=== PATIENT | female | born 1960 | race Caucasian/White ===

== ENCOUNTER 2016-09-18 16:39 | Emergency (ER) | payer OTHER ==
[~2016-09-18] VITALS: Ht 165.1 cm; Wt 63.6 kg
[2016-09-18 16:53] VITALS: BP 140/74; PULSE 69; RESP 16; O2SAT 99
[2016-09-18 17:22] VITALS: BP 142/71; PULSE 67; RESP 28; O2SAT 100
--- NOTE | 2016-09-18 17:25 | ED.REPORT ---
HPI-Chest Pain 40 and Over Date of Service Sep 18, 2016 ED Provider: MD Anita This is a 56 year old female with a history of cardiomyopathy and fibromyalgia presenting to the emergency department complaining of "crushing" substernal chest pain that began one week ago. Pain has been intermittent, spans the lower chest, with episodes lasting about 15 minutes, and are associated with lightheadedness and nausea. Exacerbated by lying flat. Not brought on by exertion or eating. Symptoms are mildly relieved by Rolaids but usually spontaneously resolve. Chest pain is resolved at this time. Denies vomiting, cough, SOB, constipation, diarrhea, or change LOC. Supervisor Cooler Service: Dr. Vallecillo. Nursing Notes Stated Complaint: CHEST PAIN Chief Complaint: Chest Pain Nursing Notes Reviewed: Yes Allergies: Coded Allergies: oxycodone (Verified Adverse Reaction, Mild, HALLUCINATIONS, 09/18/16) Replaces ROXICET SOLN propoxyphene (Verified Adverse Reaction, Mild, HALLUCINATIONS, 09/18/16) Replaces DARVOCET-N 10 Scheduled Omeprazole (Omeprazole) 20 Mg Tablet.dr 20 MG PO BID General Time Seen by MD: 17:24 Chief Complaint Chest pain Hx Obtained From: Patient Arrived By: Walk-in Sudden in Onset?: Yes Onset Occurred: 1 week ago Symptom Duration: Since onset Severity: Current: No pain currently Severity: Maximum: Mild Pertinent Negative: Pt denies other symptoms Recent Healthcare: No recent doctor visit, No recent hospitalization Similar Sx Previous: No Past Medical History Past Medical History Cardiomyopathy Migraines Thyroid disorder Fibromyalgia Ambulatory Status Independent Review of Systems Constitutional: Denies: Chills, Fever Cardiovascular: Reports: Chest pain GI: Reports: Nausea, Denies: Abdominal pain, Constipation, Diarrhea, Vomiting Musculoskeletal: Denies: Back pain Neurologic: Reports: Lightheaded, Denies: Change LOC Complete sys rev & neg: except as marked. Physical Exam Initial Vital Signs Vital Signs (First) Date Time Temp Pulse Resp B/P Pulse Ox O2 Delivery O2 Flow Rate FiO2 09/18/16 16:53 36.4 69 16 140/74 99 Room Air Initial VS: Reviewed Head / Eyes: Atraumatic, Normocephalic, PERRL ENT: Mucous membranes moist, Conjunctiva normal, No scleral icterus Neck: Supple, Non-tender, Full range of motion Extremities: Vascular intact, Neuro intact, No swelling, No tenderness Skin: Warm, Dry, No cyanosis Neurologic: Alert, Oriented, Nonfocal Psychiatric: Mood/affect normal, Behavior normal, Normal thought content General/Constitutional: Awake, Alert, No acute distress, Well appearing Respiratory / Chest: Breath sounds NL, Breath sounds = bilat, No respiratory distress, No rales, No rhonchi, No wheezing, No stridor Mild tenderness to anterior L chest wall Cardiovascular: Heart rate NL, Regular rhythm, Heart sounds NL, No murmurs, Peripheral circulation NL, Pulses = bilaterally, No gross BP differential Abdomen: Soft, McBurney's non-tender, No guarding, No rebound, BS normoactive, No distention, No hernia, No palpable mass Tenderness/Guarding/Rebound: Positive: Tender epigastric Interpretation & Diagnostics CHEST X-RAY IMPRESSION: No acute pulmonary process. Dictated by: Autumn Navarrete M.D. on 09/18/2016 at 17:36 Approved by: Autumn Navarrete M.D. on 09/18/2016 at 17:36 Lab Results Interpretation Result Diagram: 09/18/16 1730 09/18/16 1730 Test 09/18/16 17:30 White Blood Count 7.8th/mm3 (3.8-10.1) Red Blood Count 4.32mil/mm3 (3.90-5.20) Hemoglobin 12.4g/dL (12.0-15.6) Hematocrit 38.8% (35.0-46.0) Mean Corpuscular Volume 89.8fL (81-100) Mean Corpuscular Hemoglobin 28.7pg (27.0-35.0) Mean Corpuscular Hemoglobin Concent 32.0% (32.0-37.0) Red Cell Distribution Width 13.9% (12.3-15.4) Platelet Count 226bil/L (150-400) Neutrophils (%) (Auto) 48.5% (40-74) Lymphocytes (%) (Auto) 39.8% (14-46) Monocytes (%) (Auto) 8.6% (4-12) Eosinophils (%) (Auto) 2.4% (0-5) Basophils (%) (Auto) 0.6% (0-3) Sodium Level 137mEq/L (134-144) Potassium Level 3.8mEq/L (3.5-5.2) Chloride Level 97mEq/L (97-108) Carbon Dioxide Level 27mmol/L (18-29) Blood Urea Nitrogen 18mg/dL (6-24) Creatinine 1.53mg/dL (0.57-1.00) Estimat Glomerular Filtration Rate 50mL/min (>59) Glucose Level 88mg/dL (60-99) Calcium Level 9.5mg/dL (8.5-10.1) Magnesium Level 2.2mg/dL (1.6-2.6) Total Bilirubin 0.2mg/dL (0.0-1.2) Aspartate Amino Transf (AST/SGOT) 18U/L (0-50) Alanine Aminotransferase (ALT/SGPT) 14U/L (0-32) Alkaline Phosphatase 87U/L (25-150) Troponin T < 0.010ug/L (0.0-0.011) Total Protein 7.1g/dL (6.4-8.4) Albumin 4.6g/dL (3.4-5.0) Hold Alanis Top Tube Received (Received) ECG Interpretation ECG Interpretation: NSR at a rate of 63 Time: 17:57 Interpreted by: ED physician Normal ECG Interpretation: Normal rate, Normal sinus rhythm, No acute ischemic changes, Normal QRS, Normal axis, Normal intervals, No change from prior ECGs, Adequate tracing X-Ray Chest Interpretation Chest Xray Interpretation: IMPRESSION: No acute pulmonary process. Dictated by: Autumn Navarrete M.D. on 09/18/2016 at 17:36 Approved by: Autumn Navarrete M.D. on 09/18/2016 at 17:36 Re-Eval/Medical Decision Med Decision/Clinical Course This is a 56 year old female with a history of cardiomyopathy and fibromyalgia presenting to the emergency department complaining of "crushing" substernal chest pain that began one week ago. Pain has been intermittent, spans the lower chest, with episodes lasting about 15 minutes, and are associated with lightheadedness and nausea. Exacerbated by lying flat. Not brought on by exertion or eating. Symptoms are mildly relieved by Rolaids but usually spontaneously resolve. Chest pain is resolved at this time. Denies vomiting, cough, SOB, constipation, diarrhea, or change LOC. Supervisor Cooler Service: Dr. Vallecillo. Here in the emergency, the patient is afebrile stable vital signs and examination as above. EKG was obtained and interpreted by myself as documented above. CXR: Obtained, reviewed and interpreted by myself shows no evidence of acute infiltrates, effusions or pneumothorax. Cardiac and mediastinal silhouette normal. No bony or soft tissue abnormalities. CBC unremarkable except creatinine 1.53 which is slightly elevated from prior baseline of 1.13 troponin negative Overall presentation suggestive of GI etiology. I suspect GERD/gastritis. While the patient does have a cardiac history I find it highly unlikely that the symptoms the patient is experiencing are related to her underlying cardiomyopathy. Patient has been prescribed omeprazole and we will trial this over the next few days. She will return right away if he develops shortness of breath or exertionally related symptoms. Initial cardiac workup including troponin and EKG are reassuring. Patient was additionally notified of her acute kidney injury and importance of close follow-up with her primary care physician for repeat kidney function testing in the next couple of days. I feel that she is appropriate for outpatient management and she has good outpatient support. Follow-up and return precautions were reviewed in detail with the patient as well as her and they verbalized understanding and agreement with the plan. She was discharged in good condition. Counseled Regarding: Diagnosis, Lab results, Need for follow-up Discharge & Departure Primary Impression: Acid reflux Esophagitis presence: esophagitis presence not specified Qualified Code: K21.9 - Gastro-esophageal reflux disease without esophagitis Additional Impressions: Acute kidney injury History of cardiomyopathy Disposition: Home Discharge Condition All VS Reviewed: Yes Condition: Stable Patient Instructions: Gastroesophageal Reflux Disease (ED) Additional Instructions: Thank you for seeking care at emergency room. It is difficult for us to make definitive diagnoses in the ED but we believe that you are experiencing acid reflux. Our primary goal today in the ED was to evaluate you for any life-threatening conditions. Your evaluation was reassuring. You will be discharged with a prescription for omeprazole, take as prescribed. You should follow-up with your occupational health and safety officer and primary care provider next week. You should return to the ED immediately if you develop fevers, vomiting, cough, shortness of breath, chest pain, lightheadedness, weakness or any other concerning signs or symptoms. Thank you for letting us partake in your care today. Referrals: Clare Yung (PCP) Scribe Attestation Portions of this note were transcribed by Forest Muller. I, Dr. Howard personally performed the history, physical exam and medical decision-making; I reviewed and confirmed the accuracy of the information in the transcribed note. Signed by: patricia Mcdonald. 09/18/2016, 23:30. Andrew Howard MD Sep 18, 2016 17:24 FOREST MULLER Sep 18, 2016 17:33
--- NOTE | 2016-09-18 17:38 | DRSVH ---
PROCEDURE: X-RAY CHEST, TWO VIEWS ([id number]) INDICATIONS: chest pain TECHNIQUE: 2 views of the chest were acquired. COMPARISON: None. FINDINGS: Surgical changes and devices: Multiple right upper quadrant clips are present. Lungs and pleura: No pleural effusions or pneumothorax. Lungs are clear. Mediastinum: Mediastinal contours are normal. Heart size is normal. Bones and chest wall: No suspicious bony abnormalities. Soft tissues appear unremarkable. IMPRESSION: No acute pulmonary process. Dictated by: Autumn Navarrete M.D. on 09/18/2016 at 17:36 Approved by: Autumn Navarrete M.D. on 09/18/2016 at 17:36
[2016-09-18 17:44] LABS: BASOPHILS % (AUTO) 0.6 % (0-3); EOSINOPHILS % (AUTO) 2.4 % (0-5); MONOCYTES % (AUTO) 8.6 % (4-12); Mean Corpuscular Hemoglobin 28.7 pg (27.0-35.0); Mean Corpuscular Volume 89.8 fL (81-100); NEUTROPHILS % (AUTO) 48.5 % (40-74); Platelet Count 226 bil/L (150-400)
[2016-09-18] MEDS ORDERED: OMEP20TA86 PO (18:02)
[2016-09-18 18:14] LABS: TROPONIN T < 0.010 ug/L (0.0-0.011)
[2016-09-18 18:21] LABS: Magnesium 2.2 mg/dL (1.6-2.6)
[2016-09-18 18:30] VITALS: BP 133/54; PULSE 66; RESP 16; O2SAT 100
[2016-09-18 19:00] VITALS: BP 133/54; PULSE 66; RESP 16; O2SAT 100
== END 2016-09-18 19:01 | disposition home or self-care (01) ==
LOC: SED 16:39
DX: K21.9 Gastro-esophageal reflux disease without esophagitis (principal); N17.9 Acute kidney failure, unspecified; Z86.79 Personal history of other diseases of the circulatory system; Z86.39 Personal history of other endocrine, nutritional and metabolic disease; Z87.39 Personal history of other diseases of the musculoskeletal system and connective tissue; Z88.5 Allergy status to narcotic agent; Z88.8 Allergy status to other drugs, medicaments and biological substances

== ENCOUNTER 2016-11-23 01:37 | Emergency (ER) | payer OTHER ==
[~2016-11-23] VITALS: Ht 165.1 cm; Wt 63.6 kg
[~2016-11-23 01:37] MED LIST: OMEP20TA86 PO
[2016-11-23 01:47] VITALS: BP 125/80; PULSE 83; RESP 16; O2SAT 97
[2016-11-23 02:23] VITALS: BP 133/85; PULSE 72; RESP 16; O2SAT 100
--- NOTE | 2016-11-23 02:26 | ED.REPORT ---
HPI-Syncope Date of Service Nov 23, 2016 ED Provider: Yuval Monae MD Patient is a 56 year old female with a history of migraine headaches, fibromyalgia, cardiomyopathy, and prior subarachnoid hemorrhage s/p left temporal craniotomy who presents to the ED after having 2x syncopal episodes tonight. The patient was at a dinner alliance party with friends tonight and suddenly fainted. The patient did not feel light headed or dizzy prior to the episode. The patient felt normal after she awoke from the episode and was found to have a normal blood pressure. Patient admits to drinking several glasses of wine tonight, but states that she was not intoxicated. She usually drinks 1-2 glasses of wine with dinner daily. The patient then had a second syncopal episode after arrival to the ED. The patient had just gone to the bathroom when she went limp, but her was supporting her and prevented a fall. He lowered her to the ground and she awoke several minutes later. She was not pale , had no nausea, headache, chest pain, shortness of breath, palpitations, or vomiting. Again, the patient denied feeling lightheaded prior to the syncopal episode. The patent also had a syncopal episode 5 days ago, after returning home from a [place] trip.They were in [place] to picker operator their daughter's car, who is currently deployed in [employer] Patient reports having cramping in her legs throughout her trip, as the car does not have a lot of leg room. Patient reports drinking a large amount of water for the past week and she has been eating normally. She denies any injuries from her syncopal episodes. Nursing Notes Stated Complaint: FAINTED Chief Complaint: General Complaint Nursing Notes Reviewed: Yes Allergies: Coded Allergies: oxycodone (Verified Adverse Reaction, Mild, HALLUCINATIONS, 09/18/16) Replaces ROXICET SOLN propoxyphene (Verified Adverse Reaction, Mild, HALLUCINATIONS, 09/18/16) Replaces DARVOCET-N 10 Scheduled Omeprazole (Omeprazole) 20 Mg Tablet. 20 MG PO BID General Time Seen by Provider: 02:28 Chief Complaint Collapsed suddenly Hx Obtained From: Patient, Spouse Arrived By: Walk-in Onset Occurred: Just prior to arrival Symptom Duration: 1 - 15 minutes Severity: Current: No pain currently Severity: Maximum: No pain Recent Healthcare: No recent doctor visit, No recent hospitalization Similar Sx Previous: Yes Past Medical History Past Medical History Notes: Dr. Vallecillo: cardiology Past Medical History Cardiomyopathy Migraines Thyroid disorder Fibromyalgia Subarachnoid hemorrhage 16 yrs ago solitary kidney Past Surgical History left temporal craniotomy kidney surgery Family History Mother: coronary artery disease Smoking History Unknown if Ever Smoker Social History Other Social History: Good social support, Local resident Ambulatory Status Independent Review of Systems Respiratory: Denies: Shortness of breath Cardiovascular: Denies: Chest pain, Palpitations GI: Denies: Nausea, Vomiting Musculoskeletal: Reports: Extremity pain Neurologic: Reports: Change LOC, Syncope, Denies: Dizziness, Headache, Lightheaded Complete sys rev & neg: except as marked. Physical Exam Initial Vital Signs Vital Signs (First) Date Time Temp Pulse Resp B/P Pulse Ox O2 Delivery O2 Flow Rate FiO2 11/23/16 01:47 36.6 83 16 125/80 97 Room Air Initial VS: Reviewed, Vital signs normal Abdomen / GI: Soft, Non-tender, No distention Upper Extremities: Vascular intact, Neuro intact, No swelling, No tenderness Skin: Warm, Dry, No cyanosis Psychiatric: Mood/affect normal, Behavior normal, Normal thought content General/Constitutional: Awake, Alert, No acute distress Respiratory / Chest: Breath sounds NL, Breath sounds = bilat, No respiratory distress, No rales, No rhonchi, No wheezing Cardiovascular: Heart rate NL, Regular rhythm, Heart sounds NL, No murmurs Lower Extremity / Pelvis / MS: No swelling, No edema Neurologic: Oriented X3, Speech NL, No motor deficits, No sensory deficits, CN II - XII intact Head / Eyes: Atraumatic, Normocephalic, PERRL ENT: Airway patent Mouth: Positive: Mucous membranes dry Neck: Supple, No JVD Interpretation & Diagnostics Lab Results Interpretation Result Diagram: 11/23/16 0259 11/23/16 0259 Test 11/23/16 02:59 11/23/16 04:03 White Blood Count 6.9th/mm3 (3.8-10.1) Red Blood Count 4.65mil/mm3 (3.90-5.20) Hemoglobin 13.6g/dL (12.0-15.6) Hematocrit 40.6% (35.0-46.0) Mean Corpuscular Volume 87.3fL (81-100) Mean Corpuscular Hemoglobin 29.2pg (27.0-35.0) Mean Corpuscular Hemoglobin Concent 33.5% (32.0-37.0) Red Cell Distribution Width 14.3% (12.3-15.4) Platelet Count 237bil/L (150-400) Neutrophils (%) (Auto) 42.3% (40-74) Lymphocytes (%) (Auto) 47.6% (14-46) Monocytes (%) (Auto) 7.0% (4-12) Eosinophils (%) (Auto) 2.2% (0-5) Basophils (%) (Auto) 0.6% (0-3) D-Dimer < 0.50mg/L FEU (<0.50) Sodium Level 141mEq/L (134-144) Potassium Level 4.2mEq/L (3.5-5.2) Chloride Level 101mEq/L (97-108) Carbon Dioxide Level 21mmol/L (18-29) Blood Urea Nitrogen 14mg/dL (6-24) Creatinine 1.04mg/dL (0.57-1.00) Estimat Glomerular Filtration Rate 78mL/min (>59) Glucose Level 90mg/dL (60-99) Calcium Level 9.4mg/dL (8.5-10.1) Magnesium Level 2.2mg/dL (1.6-2.6) Total Bilirubin 0.2mg/dL (0.0-1.2) Aspartate Amino Transf (AST/SGOT) 25U/L (0-50) Alanine Aminotransferase (ALT/SGPT) 18U/L (0-32) Alkaline Phosphatase 90U/L (25-150) Troponin T 0.010ug/L (0.0-0.011) Total Protein 7.4g/dL (6.4-8.4) Albumin 4.5g/dL (3.4-5.0) Hold Alanis Top Tube Received (Received) Urine Color Straw (YELLOW) Urine Appearance Clear (CLEAR,HAZY) Urine pH 6.0 (5.0-8.0) Urine Specific [place] 1.004 (1.003-1.035) Urine Protein Negativemg/dL (NEG,TRACE) Urine Glucose (UA) Negativemg/dL (NEGATIVE) Urine Ketones Tracemg/dL (NEGATIVE) Urine Occult Blood Trace (NEGATIVE) Urine Nitrite Negative (NEGATIVE) Urine Bilirubin Negative (NEGATIVE) Urine Urobilinogen Normalmg/dL (NORMAL) Urine Leukocyte Esterase Negative (NEGATIVE) Urine RBC 0-2/hpf (0-2) Urine WBC 0-5/hpf (0-5) Urine Epithelial Cells Few/hpf (NONE-MOD) Urine Crystals None seen (NONE SEEN) Urine Bacteria Few/hpf (NONE-FEW) Urine Hyaline Casts None/lpf (NONE) Urine Granular Casts None seen (NONE SEEN) Urine Waxy Casts None seen (NONE SEEN) Urine Red Blood Cell Casts None seen (NONE SEEN) Urine White Blood Cell Casts None seen (NONE SEEN) Urine Mucus None seen (None Seen) Urine Trichomonas None seen (NONE SEEN) Urine Yeast None (NONE SEEN) Urinalysis Comment None Urine Culture Reflexed Not indicated Lab values outside NL range: no clinical significance. ECG Interpretation ECG Interpretation: Sinus rhythm, Rate 85 Time: 02:39 Interpreted by: ED physician Normal ECG Interpretation: No acute ischemic changes, No change from prior ECGs X-Ray Chest Interpretation Chest Xray Interpretation: Impression: No acute cardiopulmonary process. View: AP & lat Interpretation / Wet Read by: Wet read ED physician CT Head Interpretation CONCLUSION: Right basal ganglia dilated perivascular space versus lacunar infarct, chronic. Mild, patchy white matter disease particularily in the right hemisphere. No acute intracranial abnormality. Radiologist: Sandy Sherman MD 11/23/2016 - 3:26:09 AM PDT Study: Head CT no contrast Interpretation / Wet Read by: Interpret - Radiologist Re-Eval/Medical Decision Med Decision/Clinical Course 56-year-old female with a history of recurrent syncope. She had no prodrome for her syncope tonight. She did not hurt herself when she fell. She has been drinking some alcohol but not in excess. Labs are all normal. Orthostatic vital signs are insignificant. There is no evidence of valvular disease or congestive heart failure. D-dimer and troponin are negative. No cardiac arrhythmias seen on EKG or monitoring. She will be discharged home with instructions to follow up with her primary providers. Source of Hx: Old records Re-Evaluation/Progress : Time of Eval: 05:05 Patient Status: Condition improved Re-Evaluation/Progress Note: Rechecked the patient. Her EKG, chest x-ray, labs, and CT scan was normal. She has not noted any palpitations while in the ED. Patient understands and agrees with the plan to be discharged home. Discharge instructions and follow-up discussed. She should follow-up with her cotton chopper to have a month long cardiac moniter. Will performed orthostatics. All questions were addressed. Return to the ED warnings given. Counseled Regarding: Diagnosis, Lab results, Need for follow-up, When/why to return to ED Discharge & Departure Impression: Primary Impression: Syncope Syncope type: unspecified Qualified Code: R55 - Syncope and collapse Disposition: Home Discharge Condition All VS Reviewed: Yes Condition: Stable Patient Instructions: Syncope (ED) Additional Instructions: All of your labs are normal. Your EKG and bus monitor strips are normal. There is no indication at this time as to why you passed out. Follow up with your regular doctor for further evaluation, possibly to include a 30 day cardiac event monitor. Return if you have recurrent syncope. Referrals: Clare Yung (PCP) Scribe Attestation Portions of this note were transcribed by Janell Ortez. I, Dr. Monae personally performed the history, physical exam and medical decision-making; I reviewed and confirmed the accuracy of the information in the transcribed note. Signed by: Jamie Aragon, 11/23/2016 0525 copies to: Clare Yung Howard L MD Nov 23, 2016 02:25 Janell Ortez Nov 23, 2016 02:34
[2016-11-23] MEDS ORDERED: 0.9% Sodium Chloride 1,000 ML IV ONE (02:42)
[2016-11-23 03:03] LABS: BASOPHILS % (AUTO) 0.6 % (0-3); EOSINOPHILS % (AUTO) 2.2 % (0-5); Mean Corpuscular Hemoglobin 29.2 pg (27.0-35.0); Mean Corpuscular Volume 87.3 fL (81-100); NEUTROPHILS % (AUTO) 42.3 % (40-74); Platelet Count 237 bil/L (150-400)
[2016-11-23 03:46] LABS: Magnesium 2.2 mg/dL (1.6-2.6)
[2016-11-23 03:47] LABS: TROPONIN T 0.01 ug/L (0.0-0.011)
[2016-11-23 04:14] VITALS: BP 119/56; PULSE 76; RESP 16; O2SAT 98
[2016-11-23 04:25] LABS: APPEARANCE,URINE CLEAR (CLEAR,HAZY); COLOR,URINE STRAW (YELLOW); OCCULT BLOOD,URINE TRACE (NEGATIVE); UROBILINOGEN,URINE NORMAL (NORMAL)
[2016-11-23 05:21] VITALS: BP_SYST 117; BP_SYST 129; BP_DIAS 63; BP_DIAS 72; PULSE 82; PULSE 84; RESP 16; O2SAT 97
--- NOTE | 2016-11-23 07:31 | DRSVH ---
PROCEDURE: CT BRAIN WITHOUT CONTRAST ([id number]) INDICATIONS: syncope TECHNIQUE: Noncontrast 4.5 mm thick angled axial sections acquired from the foramen magnum to the vertex, with c oronal reformats. COMPARISON: [facility], CT, CT ANGIO BRAIN, 09/13/2015, 16:18. FINDINGS: Image quality: Excellent. CSF spaces: Basal cisterns are patent. No extra-axial fluid collections. Ventricles are normal in size and shape. Brain: No midline shift. No intracranial masses or hemorrhage. Diaz-white matter interface is norm al. Skull and face: The visualized facial bones are intact, without suspicious lesions. Postsurgical ugo nges to the left frontal temporal calvarium are noted. Sinuses: Visualized sinuses and mastoids are clear. IMPRESSION: 1. No acute intracranial process. Dictated by: Autumn Navarrete M.D. on 11/23/2016 at 7:28 Approved by: Autumn Navarrete M.D. on 11/23/2016 at 7:29
--- NOTE | 2016-11-23 07:49 | DRSVH ---
PROCEDURE: X-RAY CHEST, TWO VIEWS ([id number]) INDICATIONS: syncope TECHNIQUE: 2 views of the chest were acquired. COMPARISON: [facility], CR, XR CHEST 2VW, 09/18/2016, 17:16. FINDINGS: Surgical changes and devices: Cholecystectomy clips as well as right upper quadrant clips are noted. Lungs and pleura: No pleural effusions or pneumothorax. Lungs are clear. Mediastinum: Mediastinal contours are normal. Heart size is normal. Bones and chest wall: No suspicious bony abnormalities. Soft tissues appear unremarkable. IMPRESSION: No acute pulmonary process. Dictated by: Autumn Navarrete M.D. on 11/23/2016 at 7:47 Approved by: Autumn Navarrete M.D. on 11/23/2016 at 7:47
== END 2016-11-23 06:01 | disposition home or self-care (01) ==
LOC: SED 01:37
DX: R55 Syncope and collapse (principal); Z90.5 Acquired absence of kidney; Z87.39 Personal history of other diseases of the musculoskeletal system and connective tissue; Z86.39 Personal history of other endocrine, nutritional and metabolic disease; Z86.79 Personal history of other diseases of the circulatory system; Z98.890 Other specified postprocedural states; Z88.5 Allergy status to narcotic agent
CPT/HCPCS: 36415; 70450; 71020; 80053; 81000; 83735; 84484; 85025; 85378; 93005; 96360; 99285; J7030

== ENCOUNTER 2016-11-24 23:37 | Emergency (ER) | payer OTHER ==
[~2016-11-24] VITALS: Ht 165.1 cm; Wt 63.6 kg
[2016-11-24 23:41] VITALS: BP 133/75; RESP 16; O2SAT 100
--- NOTE | 2016-11-25 01:37 | ED.REPORT ---
HPI-General Illness Date of Service November 25, 2016 ED Provider: Oliverio Cisneros MD A 56 year old female with a history of fibromyalgia, cardiomyopathy, and subarachnoid hemorrhage presents to the ED due to epistaxis. The pt began experiencing this episode at approximately 20:30 tonight and it continued until ten minutes ago. The pt attempted using tampons and clamps to stop the bleeding without relief. She removed the tampons thirty minutes ago. The pt has experienced nosebleeds before but they have not been nearly this severe. She denies use of blood thinners or recent illness. Nursing Notes Stated Complaint: NOSE BLEED Chief Complaint: ENT & Mouth Nursing Notes Reviewed: Yes Allergies: Coded Allergies: oxycodone (Verified Adverse Reaction, Mild, HALLUCINATIONS, 09/18/16) Replaces ROXICET SOLN propoxyphene (Verified Adverse Reaction, Mild, HALLUCINATIONS, 09/18/16) Replaces DARVOCET-N 10 Scheduled Omeprazole (Omeprazole) 20 Mg Tablet.dr 20 MG PO BID General Time Seen by MD: 01:36 Chief Complaint Other (Epistaxis) Hx Obtained From: Patient Arrived By: Walk-in Sudden in Onset?: No Onset Occurred: 5 - 8 hours ago Symptom Duration: Since onset Recent Healthcare: No recent hospitalization, Recent doctor visit Similar Sx Previous: No Past Medical History Past Medical History Notes: Dr. Vallecillo: cardiology Past Medical History Cardiomyopathy Migraines Thyroid disorder Fibromyalgia Subarachnoid hemorrhage 16 yrs ago solitary kidney Past Surgical History left temporal craniotomy kidney surgery Family History Mother: coronary artery disease Smoking History Unknown if Ever Smoker Social History Other Social History: Good social support, , Local resident Ambulatory Status Independent Review of Systems Full Review of Systems Constitutional: Denies: Fever Ears / Nose / Throat: Reports: Nose bleeding Respiratory: Denies: Non-productive cough, Shortness of breath Cardiovascular: Denies: Chest pain GI: Denies: Abdominal pain Skin: Denies Rash Complete sys rev & neg: except as marked. Physical Exam Vital Signs Vital Signs Date Time Temp Pulse Resp B/P Pulse Ox O2 Delivery O2 Flow Rate FiO2 11/24/16 23:41 36.4 79 16 133/75 100 Room Air Initial VS: Reviewed General/Constitutional: Awake, Alert Head / Eyes: Atraumatic, Normocephalic, PERRL, EOMI ENT: Atraumatic, Airway patent, Mucous membranes moist small amount of clot adherent to left septum no signs of nasal speculum no clear source of nasal bleeding Neck: Atraumatic, Supple, Full range of motion Respiratory / Chest: Atraumatic, Breath sounds NL, Breath sounds = bilat, No respiratory distress Cardiovascular: Heart rate NL, Regular rhythm, Heart sounds NL, No gallop, No murmurs, No rubs Abdomen: Atraumatic, Soft, Non-tender Back: Atraumatic, Full range of motion Upper Extremities Upper Extremity / MS: Atraumatic, Full range of motion Lower Extremity / Pelvis / MS: Atraumatic, Full range of motion Skin: Atraumatic, Color NL, No rash, Warm, Dry Neurologic: Oriented X3, Speech NL, No motor deficits, No sensory deficits Psychiatric: Affect NL, Mood NL Re-Eval/Medical Decision Source of Hx: Old records Time of Eval: 01:36 Patient Status: Condition improved Re-Evaluation/Progress Note: The pt is informed of her diagnosis and the plan for discharge during the initial interview. The pt understands and agrees with the plan. All questions are addressed at this time. Counseled Regarding: Diagnosis, Need for follow-up, When/why to return to ED Discharge & Departure Primary Impression: Anterior epistaxis Disposition: Home Discharge Condition All VS Reviewed: Yes Condition: Stable Patient Instructions: Epistaxis (ED) Additional Instructions: This appears to be a nosebleed from the front of the nostril. Bleeding has stopped at present, hopefully it will not re-start. Apply antibiotic ointment to the inside/middle of your nose twice daily for 2 days. Do not bend over or blow your nose. If bleeding recurs, pinch nose firmly for 10 min, return to ED if this does not stop bleeding. Follow up with primary care later this week as planned. Call to see an ENT doctor if you have recurrent episodes of bleeding. Referrals: Clare Yung (PCP) Jose Antonio Corey MD Attestation Portions of this note were transcribed by Liv Vásquez. I, Dr. Cisneros personally performed the history, physical exam and medical decision-making; I reviewed and confirmed the accuracy of the information in the transcribed note. Signed by: Jamie Lai, 11/25/16 and 0206. copies to: Jose Antonio Corey MD; Clare Yung Donald L MD November 25, 2016 01:37 LIV VÁSQUEZ November 25, 2016 01:47
== END 2016-11-25 02:01 | disposition home or self-care (01) ==
LOC: SED 23:37
DX: R04.0 Epistaxis (principal); Z88.5 Allergy status to narcotic agent; Z88.8 Allergy status to other drugs, medicaments and biological substances

== ENCOUNTER 2017-02-05 07:09 | Day surgery (SDC) | payer OTHER ==
[~2017-02-05] VITALS: Ht 165.1 cm; Wt 66.7 kg
[~2017-02-05 07:09] MED LIST changes: +DIAZ2TAB PO; +DIGO125T73 PO; +ESTR1TAB24 PO; +HYDR-3090 PO; +HYDR2TAB27 PO; +Lactated Ringer's 1,000 ML IV ONE; +METH500T PO; +METO10TA3 PO; +NORT10CA PO; +PARO20TA57 PO; +PREG75CA PO; +TRAZ-118 PO
[2017-02-05] MEDS ORDERED: Propofol 10,000 mCg/mL 20 mL Inj ONE (07:10)
[2017-02-05] MEDS ORDERED: fentaNYL-PF 50 mCg/mL 2 mL Inj ONE (07:10)
[2017-02-05 07:18] VITALS: BP 119/66; PULSE 74; RESP 14; O2SAT 98
--- NOTE | 2017-02-05 08:33 | PCM.ENDCOL ---
Colonoscopy Date of Service: Feb 05, 2017 Physician Bill Jade MD Pre Procedure Diagnosis: Constipation Post Procedure Dx & Findings: Polyp hemorrhoids inadequate prep Procedure Colonoscopy PROCEDURE IN DETAIL: Prep inadequate - prep was relatively poor because patient had significant amount of fibrous material. We did an however get a good look in the cecum. Withdrawal time greater than 10 minutes After unremarkable rectal examination the Olympus video colonoscope was inserted patient's anal canal and was advanced to cecum. Landmarks were identified including the ileocecal valve and appendiceal orifice. Scope was withdrawn systematically. Visualized colonic mucosa showed healthy shiny mucosa with normal healthy-appearing vasculature. The cecum there was a 1 mm polyp was removed completely using cold forceps. In the sigmoid colon there were small diverticuli. Healing numbers. In the rectum retroflexion was done which showed hemorrhoids. Anal canal was inspected carefully on the way out and hemorrhoids noted. Impression polyp 1 status post complete removal Few small diverticuli Hemorrhoids Recommendation Repeat colonoscopy in 6 months with 2 weeks of low residual diet and with anesthesia Presedation Assessment Risks and Benefits Informed consent was obtained from the patient after all risks and benefits including but not limited to drug reaction, infection, pain, bleeding, perforation, as well as alternatives were discussed. Patient monitoring Continuous pulse oximetry, cardiac monitoring, blood pressure monitoring, IV access, and oxygen at 2L per nasal cannula. Complications There were no periprocedural complications identified. Post Procedure Plan Post Procedure Recommendations 1. Restrict activities today. 2. Resume normal activities in the morning. 3. Resume medications. 4. Patient informed of normal post procedure side effects as bloating, drowsiness, blood streaking in the stool. 5. average risk CRCS. If colon polyps come back as: -Hyperplastic- can repeat colonoscopy in 10 years -Tubular adenoma- repeat colonoscopy in 5 years -Tubulovillous/villous adenoma- repeat colonoscopy in 3 years -If any dysplasia- return to clinic as soon as possible 6. Please don't hesitate to call me with any questions. Bill Jade MD Feb 05, 2017 08:33
[2017-02-05 08:34] VITALS: BP 101/56; PULSE 74; RESP 16; O2SAT 99
[2017-02-05 08:44] VITALS: BP 108/69; PULSE 69; RESP 16; O2SAT 97
--- NOTE | 2017-02-05 17:42 | PCM.HPANE ---
Patient Data Date of Service: Feb 05, 2017 (0700) Surgeon Admitting Provider: Attending Provider:Bill Jade MD Primary Care Physician:Clare Yung Other Provider:Varun Mercedes Anesthesia Reason for Visit Constipation Ht/WT & BMI Height (Feet): 5 Height (Inches): 5 Weight (Kilograms): 66.68 Body Mass Index 24.00 Allergies Coded Allergies: oxycodone (Verified Adverse Reaction, Mild, HALLUCINATIONS, 09/18/16) Replaces ROXICET SOLN propoxyphene (Verified Adverse Reaction, Mild, HALLUCINATIONS, 09/18/16) Replaces DARVOCET-N 10 Past Anesthesia History Anesthesia History: Denies:: Abnormal Airway, Anesthesia Reactions, Difficult Intubation, Fam Anesthesia Reaction, Fam Malignant Hypertherm, Malignant Hyperthermia Diabetes History Hx Diabetes?: No MRSA MRSA: No Medications Home Meds Incl Beta Asndra: No Active Scripts Omeprazole 20 Mg Tablet.dr20 Mg PO BID 30 Days Prov:Andrew Howard MD 09/18/16 Reported Medications Hydrocodone-Acetaminophen 5-300 mg 1 Each Tablet1 Tablet PO Q4H PRN For Pain Ref 0 02/04/17 Diazepam (Valium)2 Mg Tablet1 Mg PO BID 30 Days Ref 0 02/04/17 Trazodone 100 Mg [id number] Mg PO TIDWM Ref 0 02/04/17 Methocarbamol (Robaxin)500 Mg Tablet1,000 Mg PO QID 02/04/17 Paroxetine (Paxil)20 Mg Fopabp10 Mg PO HS Ref 0 02/04/17 Nortriptyline 10 Mg Aqywssr97 Mg PO HS 02/04/17 Metoclopramide 10 Mg Lvvapj43 Mg PO HS Ref 0 02/04/17 Pregabalin (Lyrica)75 Mg Widjghe57 Mg PO BID 30 Days Ref 0 02/04/17 Digoxin 125 Mcg Bctwea148 Mcg PO DAILY #30 TABLET Ref 0 02/04/17 Discontinued Reported Medications Estradiol 1 Mg Tablet0.5 Mg PO DAILY Ref 0 02/04/17 Hydromorphone (Dilaudid)2 Mg Tablet2 Mg PO Q4H PRN Pain 02/04/17 History History of ENT Problems?: No HEENT History: Denies:: Abnormal Airway Cataracts Difficult Intubation Dysphagia Glaucoma Hearing Problem Sinus Problem TMJ Denture Type: None Teeth Condition: Within Normal Limits Hx of Heart Problems?: No Cardiovascular History: Denies:: AICD Atrial Fibrillation Chest Pain Congestive Heart Failure Hypertension (HYPOTENSION) Pacemaker Valvular Heart Disease Other Cardiac History: HX OF CARDIOMYOPATHY W/ DIZZINESS Hx of Respiratory Problem?: No Respiratory History: Denies:: Asthma COPD Chest Surgery Cough Dyspnea Emphysema Hemoptysis Oxygen Administration Pneumonia Pulmonary Embolism Tuberculosis Use of C-PAP Machine Use of Inhalers / NEBS Hx Neurologic Problems?: No Neurological History: Positive for:: CVA (SUBARACHNOID HEMORRHAGE) Hx of GI Problems?: Yes Other GI Pertinent History: R KIDNEY REMOVED R/T RENAL CANCER Hx of Problems?: No Female Hx: Denies:: Currently (HYSTO) Hx Musculoskeletal Problems?: No Musculoskeletal History: Positive for:: Fibromyalgia Denies:: Joint Replacement Psycho Social History: Positive for:: Anxiety Denies:: Hx Depression Hx Surgeries?: Yes (NECK CYST, CSEC, HYSTO W/ OOPH, R KIDNEY REM, BRAIN, BILAT SHOUL, LAP CARMEN) Hx Any Other Health Problems?: Yes Hx Diabetes: No Hx Alcohol Use: YesHx Substance Use: No Smoking Status: Unknown if Ever Smoker Have You Smoked inLast 12 mo: No Stop/Bang Treated for Sleep Apnea?: No Do You Have a CPAP Machine?: No S-Snoring: Do You Snore Loudly: No T-Tired: feel tired, fatigued: No O-Obsered: Observed not breath: No P-Blood Pressure: treated: No B- Body Mass Index > 35 kg/m2: No A- Age over 50: Yes N- Neck Large Circumference: No G- Gender Male: No KENDAL Total Score: 1 Risk Assessment Category Category 1A: Patient has history of documented sleep apnea, and HAS NOT received any narcotic, sedative or anesthesia administration during this stay. Category 1B: Patient has history of documented sleep apnea, and HAS received any narcotic , sedative or anesthesia administration during this stay Category 2: Patient has SUSPECTED Obstructive Sleep Apnea, and HAS received any narcotic , sedative or anesthesia administration during this stay. Category 3: Patient has SUSPECTED Obstructive Sleep Apnea and HAS NOT received narcotic, sedative or anesthesia administration during this stay. Category 4: Outpatient in Procedural Areas with known sleep apnea or who screen positive for High Risk via the STOP/BANG questionnaire. Exam Exam General Appearance: Alert, Oriented X3, Cooperative, No Acute Distress HEENT/AIRWAY: MP 2 Lungs: Clear to Auscultation Heart: Exam Unremarkable Meds/Labs/Diagnostics Admission Meds Current Medications Lactated Ringer's (Lr) 1,000 ml @ 10 mls/hr Q24H ONCE IV Last administered on 02/05/17t 08:28; Start 02/05/17 at 06:00; Stop 02/06/17 at 05:59 Plan Impression Patient chart reviewed, patient interviewed and anesthestic plan with risks, benefits, and alternatives discussed, and informed consent obtained. ASA Physical Status: ASA2 Mod Systemic Disease Anesthetic Plan: MAC Bene/Risks/Altern/Consents: Yes HP Complete Prior to Induction: Yes Laci Araujo MD Feb 05, 2017 17:42
--- NOTE | 2017-02-06 15:36 | PATH ---
SURGICAL PATHOLOGY Attending Physician:Bill Jade M.D. CASE STATUS: Signed Out PATIENT NAME: ADINA BARAHONA PID: [id number] : 1960 DATE COLLECTED:02/05/2017 15:41 SPECIMEN: Colon, Polyp CLINICAL HISTORY: 1). CECAL POLYP FINAL DIAGNOSIS: 1.CECAL POLYP, BIOPSY: HYPERPLASTIC POLYP. ICD10 D12.0 GROSS DESCRIPTION: The specimen is received in one formalin filled container labeled with the patient's name, sublabeled "cecal polyp" and consists of a 0.1 x 0.1 x 0.1 CM portion of tissue which is entirely submitted in one cassette. 02/05/2017DC MICRO DESCRIPTION: See diagnosis. ICD-9 CODES: CPT CODES: 1: 21079 Electronically Signed Out Senthil Bateman MD, Ph.D. [facility] Pathology [facility], [place] [address] Technical component performed at [facility], [address] [place] [address] Ave[address], [place], [address]
== END 2017-02-05 23:59 | disposition home or self-care (01) ==
LOC: END 07:09
PROVIDERS: ATTEND Internal Medicine
DX: K59.00 Constipation, unspecified (principal); K63.5 Polyp of colon; K57.30 Diverticulosis of large intestine without perforation or abscess without bleeding; K64.8 Other hemorrhoids; I42.9 Cardiomyopathy, unspecified; E05.80 Other thyrotoxicosis without thyrotoxic crisis or storm
CPT/HCPCS: 45380; J2250; J3010; J7120